=== PATIENT | male | born 1930 | race Caucasian/White ===

== ENCOUNTER 2017-05-05 09:22 | Emergency (ER) | payer OTHER ==
[2017-05-05 09:30] VITALS: BP 151/74; TEMP 98.6; BMI 22.0
[2017-05-05] MEDS ORDERED: NORCO 10-325 PO STA (10:13)
--- NOTE | 2017-05-05 10:34 | CT ---
EXAM: CT THORAX HISTORY: Fall on ice, rib pain posteriorly. TECHNIQUE: CT thorax without intravenous contrast. Multiplanar images presented. Coronal and sagit del re-formations. COMPARISON: None FINDINGS: Heart size is within normal limits. Mild to moderate atherosclerotic disease. Mild interstitial thickening in the medial lower right middle lobe possibly related to fibrosis. Cor relate clinically for any evidence of mild pneumonia. There is no pneumothorax or pleural fluid. No rmal vascularity. Mild to moderate degenerative changes of the thoracic spine. See also same day CT thoracic spine rep ort. There is a mildly displaced acute fracture of the posterior left tenth rib. No other acute frac tures are seen. Normal sized nodular thyroid gland. Tiny sliding hiatal hernia. IMPRESSION: 1. Mildly displaced acute fracture of the posterior left tenth rib. 2. Subtle interstitial thickening in the right middle lobe may represent fibrosis. Correlate clinic ally for any evidence of mild pneumonia. 3. Atherosclerotic disease. 4. Nodular thyroid gland. 5. Tiny sliding hiatal hernia.
--- NOTE | 2017-05-05 10:35 | CT ---
EXAM: CT thoracic spine without contrast HISTORY: Fall on ice COMPARISON: None TECHNIQUE: CT thoracic spine performed without intravenous contrast. Coronal and sagittal reformatt ed images obtained. FINDINGS: Vertebral bodies normal in height. No fracture. No subluxation. [id number] multil evel chronic discogenic degenerative disease with intervertebral disc space narrowing and marginal os teophyte formation. Central canal grossly patent. Right renal cyst. Atherosclerosis. Please see s eparate report CT chest regarding findings in the chest. IMPRESSION: 1. No fracture or subluxation. 2. Mild to moderate chronic discogenic degenerative disease.
--- NOTE | 2017-05-05 10:43 | CT ---
EXAM: CT lumbar spine without contrast HISTORY: Pain, fall COMPARISON: None TECHNIQUE: CT lumbar spine performed without intravenous contrast. Coronal and sagittal reformatted images obtained. FINDINGS: Patient status post posterior spinal fusion L4-L5. Hardware appears intact. Interbody spa cer L4-L5. Vertebral bodies normal height. No fracture. Mild to moderate rightward curvature lumba r spine. Multilevel marginal osteophyte formation. Multilevel Schmorl's nodes noted. Moderate interv ertebral space narrowing L2-L3, greater on the left. Multilevel facet arthrosis. 1 mm retrolisthesi s L2 on L3. Sacroiliac joints intact with mild degenerative change. Right renal cyst. Atherosclero sis. No paravertebral soft tissue abnormality. T12-L1: No central canal or neural foraminal narrowing. L1-L2: Posterior disc osteophyte complex and facet arthrosis causing moderate left neural foraminal narrowing. L2-L3: Posterior disc osteophyte complex and facet arthrosis causing mild central canal, mild right and mild to moderate left neural foraminal narrowing. L3-L4: Posterior disc osteophyte complex and facet arthrosis causing mild to moderate central canal and moderate bilateral neural foraminal narrowing. L4-L5: Posterior disc osteophyte complex1 and facet arthrosis causing mild to moderate right and mil d left neural foraminal narrowing. L5-S1: No central canal or neural foraminal narrowing. IMPRESSION: 1. No fracture. 2. Posterior spinal fusion L4-L5. Chronic discogenic degenerative disease and facet arthrosis. Ple ase see segmental analysis.
--- NOTE | 2017-05-05 10:56 | ED.PDOC ---
General ED Provider: Dr. KARINA JUSTICE Chief Complaint: Fall Stated Complaint: fall posterior chest wall pain back pain Time Seen by Physician: 09:29 (fall ) Mode of Arrival: Walk-In Information Source: Patient Exam Limitations: No limitations Primary Care Provider: PAULINO HILTON Nursing and Triage Documentation Reviewed and Agree: Yes Reviewed sepsis parameters & appropriate labs ordered?: Yes System Inflammatory Response Syndrome: Not Applicable Sepsis Protocol: For patient's 13 years and over: Temp is 96.8 and below OR 101 and greater Pulse >90 BPM Resp >20/minute Acutely Altered Mental Status Are patient's symptoms suggestive of a new infection, such as: -Pneumonia -Skin, Soft Tissue -Endocarditis -UTI -Bone, Joint Infection -Implantable Device -Acute Abdominal Infection -Wound Infection -Meningitis -Blood Stream Catheter Infection -Unknown System Inflammatory Response Syndrome: Not Applicable Trauma/Injury Complaint Exam - Trauma Complaint/Exam Location of Pain or Injury: Reports: Chest, Back Mechanism of Injury: Reports: Fall Onset/Duration: 3 days ago Symptoms Are: Resolved Initial Severity: Moderate Current Severity: Moderate Character: Reports: Aching Aggravating: Reports: Movement Alleviating: Reports: Rest Associated Signs and Symptoms: Denies: LOC, Confusion, Memory loss, Lethargy, Vomiting, Bleeding, Bruising, Swelling, Extremity disuse, Painful respiration, Hoarseness, Dysphagia, Hemoptysis, Significant blood loss Penetrating Injury Risk Factors: Reports: None Related Surgical History: Reports: None Nexus Low Risk Criteria: No post-midline CS tender, No evidence of intoxicat., No Altered LOC, No focal neuro deficit, No distracting injuries Immobilization Removed Post Exam: Yes Glascow Coma Scale (see protocol): 15 Trauma Findings: Absent: [place] eyes, Hemotympanum, Nasal deformity, Dental tenderness, Dental injury, Dental malocclusion, Neck tenderness, Neck spasm, SubQ Air, Crepitus, Airway obstructed, Trachea displaced, Labored respirations, Decreased breath sounds, Muffled heart sounds, Abdominal distention, Pelvic tenderness, Pelvic instability Skin Findings: Present: Normal findings Differential Diagnoses: Fracture, Sprain, Strain Review of Systems - Review Of Systems Constitutional: Reports: No symptoms Eyes: Reports: No symptoms Ears, Nose, Mouth, Throat: Reports: No symptoms Respiratory: Reports: No symptoms Cardiac: Reports: No symptoms GI: Reports: No symptoms : Reports: No symptoms Musculoskeletal: Reports: Back pain, Other (chest wall pain) Skin: Reports: No symptoms Neurological: Reports: No symptoms Endocrine: Reports: No symptoms Hematologic/Lymphatic: Reports: No symptoms All Other Systems: Reviewed and Negative Past Medical History - Past Medical History Previously Healthy: No Endocrine: Reports: None Cardiovascular: Reports: Hypertension Respiratory: Reports: None Hematological: Reports: None Gastrointestinal: Reports: GERD Genitourinary: Reports: None Neuro/Psych: Reports: None Musculoskeletal: Reports: None Cancer: Reports: None - Surgical History General Surgical History: Reports: Unknown - Family History Family History: Reports: Unknown - Social History Smoking Status: Never smoker Hx Substance Use: No Alcohol Screening: None - Immunizations Tetanus Shot up to Date: No Physical Exam - Physical Exam Appearance: Well-appearing (post chest wall pain on palpation of lower ribbs ), No pain distress, Well-nourished Eyes: STORM, EOMI, Conjunctiva clear ENT: Ears normal, Nose normal, Oropharynx normal Respiratory: Airway patent, Breath sounds clear, Breath sounds equal, Respirations nonlabored Cardiovascular: RRR, Pulses normal, No rub, No murmur GI/: Soft, Nontender, No masses, Bowel sounds normal, No Organomegaly Musculoskeletal: Normal strength, ROM intact, No edema, No calf tenderness Skin: Warm, Dry, Normal color Neurological: Sensation intact, Motor intact, Reflexes intact, Cranial nerves intact, Alert, Oriented Psychiatric: Affect appropriate, Mood appropriate Interpretation - Radiology Interpretation Radiology Interpretation By: Radiologist Radiology Results: Positive (10th rib fx) Critical Care Note - Critical Care Note Total Time (mins): 0 Course - Course Orders, Labs, Meds: Orders Category Date Time Status Hydrocodone Bit/Acetaminophen [[place] 10-325] MEDS 05/05/17 10:13 Stat 1 tab PO ONCE STA CT CHEST W/O CONTRAST Stat RADS 05/05/17 09:[address] LUMBAR SPINE W/O CONTRAST Stat RADS 05/05/17 09:[address] THORACIC SPINE W/O CONTRAST Stat RADS 05/05/17 09:43 Taken Medications Discontinued Medications Generic Name Dose Route Start Last Admin Trade Name Freq PRN Reason Stop Dose Admin Acetaminophen/Hydrocodone Bitart 1 tab 05/05/17 10:13 05/05/17 10:20 [place] 10-325 PO 05/05/17 10:14 1 tab ONCE STA Administration Vital Signs: Temp Pulse Resp BP Pulse Ox 05/05/17 09:24 98.6 F 78 16 151/74 H 93 L Departure - Departure Time of Disposition: 10:56 Disposition: HOME SELF-CARE Discharge Problem: Falls Fracture, rib Qualifiers: Encounter type: initial encounter Rib fracture type: single rib Fracture type: closed Instructions: Rib Fracture (ED) Condition: Good Pt referred to PMD for follow-up: Yes IPMP verified?: Yes Additional Instructions: Please call your Family Physician as soon as possible to schedule a follow-up appointment. Prescriptions: Hydrocodone/Acetaminophen [[place] 10-325 Tablet] 1 each PO Q8HR #12 tablet Allergies/Adverse Reactions: Allergies morphine Adverse Reaction (Verified 05/05/17 09:32) pregabalin [From Lyrica] Adverse Reaction (Verified 05/05/17 09:32) Home Medications: Ambulatory Orders Acetaminophen [Tylenol Extra Strength] 500 mg PO DIRECTED PRN 10/05/12 Aspirin [Aspirin Chewable] 81 mg PO DAILY 10/05/12 Cholecalciferol (Vitd3)/Vit K2 [D3 + K2 Dots 1,000 Units Tab] 1 each PO DAILY Lisinopril/Hydrochlorothiazide [Zestoretic 20-12.5 mg Tablet] 1 each PO DAILY Multivitamin [Multi Vitamin Daily] 1 each PO DAILY 10/05/12 [place]-3 Fatty Acids/Fish Oil [Fish Oil 1,000 mg Softgel] 1 each PO DAILY Omeprazole [Prilosec] 20 mg PO DIRECTED PRN 10/05/12 Simvastatin 40 mg PO DAILY 10/05/12 Sotalol HCl [Sotalol] 120 mg PO BID 10/05/12 Vardenafil HCl [Levitra] 10 mg PO DIRECTED PRN 10/05/12 Lisinopril 20 mg PO DAILY 06/04/15 Hydrocodone/Acetaminophen [[place] 10-325 Tablet] 1 each PO Q8HR #12 tablet
== END 2017-05-05 11:06 | disposition home or self-care (01) ==
LOC: ED 09:22
DX: S22.32XA Fracture of one rib, left side, initial encounter for closed fracture (principal); W19.XXXA Unspecified fall, initial encounter
CPT/HCPCS: 99283

== ENCOUNTER 2020-05-13 22:36 | Inpatient (IN) ==
[2020-05-13 23:13] LABS: BASOPHILS % (AUTO) 0.6 % (0.0-3.0); EOSINOPHILS % (AUTO) 0.2 % (0.0-7.0); HEMATOCRIT 38.8 % (42.0-52.0); HEMOGLOBIN 13.5 g/dl (14.0-18.0); IMMATURE GRANULOCYTE % (AUTO) 0.2 % (0.0-5.0); LYMPHOCYTES # (AUTO) 1.1 K/uL (0.60-3.4); LYMPHOCYTES % (AUTO) 22.2 (10.0-50.0); MEAN CORPUSCULAR HEMOGLOBIN 31.6 pg (27.0-31.0); MEAN CORPUSCULAR HGB CONC 34.8 (31.8-35.4); MEAN CORPUSCULAR VOLUME 90.9 fl (80.0-94.0); MONOCYTES # (AUTO) 0.4 K/uL (0.4-2.0); MONOCYTES % (AUTO) 7.1 (0-10); NEUTROPHILS # (AUTO) 3.4 K/ul (2.0-6.9); NEUTROPHILS % (AUTO) 69.7 % (42.2-75.2); PLATELET COUNT 186 10^3/uL (140-440); RDW COEFFICIENT OF VARIATION 14.1 % (11.6-14.8); RED BLOOD COUNT 4.27 10^6/ul (4.70-6.10); WHITE BLOOD COUNT 4.92 K/ul (4.2-10.2)
[2020-05-13 23:23] LABS: ALANINE AMINOTRANSFERASE 25.7 U/L (0-50); ALBUMIN 4.31 g/dL (3.5-5.0); ALKALINE PHOSPHATASE 72.2 U/L (56-119); ASPARTATE AMINO TRANSFERASE 65.2 U/L (17-59); BILIRUBIN,TOTAL 1.18 mg/dL (0.2-1.3); BLOOD UREA NITROGEN 30.7 mg/dL (9-20); CALCIUM 9.65 mg/dL (8.4-10.2); CARBON DIOXIDE 27.4 mmol/L (22-30.0); CHLORIDE 102.3 mmol/L (98-107); CREATININE 1.43 mg/dL (0.60-1.10); GLUCOSE 150.7 mg/dL (74-106); POTASSIUM 3.76 mmol/L (3.5-5.1); SODIUM 138.7 mmol/L (134.5-145); TOTAL PROTEIN 7.49 g/dL (6.3-8.2)
[2020-05-13 23:24] LABS: BLOOD ALCOHOL < 10.0 mg/dL (0.0-50.0)
[2020-05-13 23:29] LABS: ABG PH 7.45 (7.35-7.45)
--- NOTE | 2020-05-13 23:55 | CT ---
EXAM: CT scan brain without contrast HISTORY: Mental status change COMPARISON: None. FINDINGS: Contiguous axial images obtained from skull base to the convexities without contrast utili zing 5-mm collimation. Sagittal and coronal reconstructions were imaged and reviewed. The ventricle s and CSF spaces are prominent compatible with age appropriate atrophy. There is moderate periventri cular hypodensity noted compatible with chronic microvascular disease. There are no acute intracrani al findings. Atherosclerotic changes are seen involving the bilateral vertebral and cavernous international account representative al carotid arteries. The visualized paranasal sinuses and mastoid air cells are clear. The calvariu m is intact. IMPRESSION: No acute findings. All CT scans are performed using dose optimization techniques as appropriate to the performed exam an d include at least one of the following: Automated exposure control, adjustment of the mA and/or kV according t o size, and the use of iterative reconstruction technique.
--- NOTE | 2020-05-14 00:15 | ED.PDOC ---
General ED Provider: Dr. ALVIN KERR Chief Complaint: Altered Mental Status Stated Complaint: brought in by ems wandering the streets--pepe said he was talking to a napkin earlier Time Seen by Physician: 00:46 Mode of Arrival: Ambulance Information Source: Patient Primary Care Provider: TATA DACOSTA Nursing and Triage Documentation Reviewed and Agree: Yes Does patient meet sepsis criteria?: No System Inflammatory Response Syndrome: Not Applicable Sepsis Protocol: For patient's 13 years and over: Temp is 96.8 and below OR 101 and greater Pulse >90 BPM Resp >20/minute Acutely Altered Mental Status Are patient's symptoms suggestive of a new infection, such as: -Pneumonia -Skin, Soft Tissue -Endocarditis -UTI -Bone, Joint Infection -Implantable Device -Acute Abdominal Infection -Wound Infection -Meningitis -Blood Stream Catheter Infection -Unknown Neurological Complaint Exam Altered Mental Status Complaint/Exam Current Mental Status: Confusion Last Known Well: today Onset: Gradual Symptoms Are: Still present Timing: Constant Initial Severity: Mild Current Severity: Moderate Eye Deviation Present: No Character: Reports Confusion Aggravating: Reports None Alleviating: Reports None Carotid Bruit Present: No Nystagmus Present: No Gag Reflex Present: Yes Meningeal Signs Positive: No Focal Weakness: Present None Focal Sensory Loss: Present None Gait: Normal [id number]: Normal Findings Romberg Test Positive: No Babinski Sign: Negative Right and Negative Left Heel to Toe Normal: Yes Signs of Injury: Present Normal findings Thrombolytics Considered: No Differential Diagnoses: CVA and Other Review of Systems Review Of Systems Constitutional: Reports No symptoms Eyes: Reports No symptoms Ears, Nose, Mouth, Throat: Reports No symptoms Respiratory: Reports No symptoms Cardiac: Reports No symptoms GI: Reports No symptoms : Reports No symptoms Musculoskeletal: Reports No symptoms Skin: Reports No symptoms Neurological: Reports Cognitive dysfunction Endocrine: Reports No symptoms Hematologic/Lymphatic: Reports No symptoms All Other Systems: Reviewed and Negative [facility] Social History Smoking and tobacco status: Never smoker Physical Exam Physical Exam Appearance: Reports Well-appearing and Thin Ill-appearing: None Pain Distress: None Eyes: Reports STORM, EOMI and Conjunctiva clear ENT: Reports Ears normal Neck: Supple Respiratory: Reports Airway patent, Breath sounds clear and Breath sounds equal Cardiovascular: Reports RRR, Pulses normal, No rub and No murmur GI/: Reports Soft, Nontender, No masses and Bowel sounds normal Musculoskeletal: Reports Normal strength, ROM intact, No edema and No calf tenderness Skin: Reports Warm and Normal color Neurological: Reports Sensation intact, Motor intact, Reflexes intact, Cranial nerves intact, Alert and Disoriented Psychiatric: Reports Affect appropriate and Mood appropriate Interpretation Radiology Interpretation Radiology Interpretation By: Radiologist Radiology Results: Negative Exam Interpreted: CT Scan EKG Interpretation Time of EKG #1: 00:14 Rate: Marcus Rhythm: Sinus Ectopy: None Amonate: NL ST Segment: Normal Interpretation: sinus marcus Physician Notification Case Discussed Physician Notified: dr [email or web address] Time of Notification: 00:45 Critical Care Note Critical Care Note Total Critical Care Time (mins): 0 Course Course Hematology/Chemistry: 05/13/20 23:06 05/13/20 23:06 Orders, Labs, Meds: Lab Review 05/13/20 05/13/20 05/13/20 22:55 23:06 23:06 WBC 4.92 RBC 4.27 L Hgb 13.5 L Hct 38.8 L MCV 90.9 MCH 31.6 H MCHC 34.8 RDW Coeff of Natty 14.1 Plt Count 186 Immature Gran % (Auto) 0.2 Neut % (Auto) 69.7 Lymph % (Auto) 22.2 Lipscomb % (Auto) 7.1 Eos % (Auto) 0.2 Baso % (Auto) 0.6 Neut # (Auto) 3.4 Lymph # (Auto) 1.1 Lipscomb # (Auto) 0.4 Eos # (Auto) 0.0 Baso # (Auto) 0.0 Immature Gran # (Auto) 0.0 Puncture Site Rbrach Base Excess 4.5 H O2 Saturation 94.8 ABG pH 7.45 ABG pCO2 41.0 ABG pO2 71.0 L ABG HCO3 28.5 H ABG Total CO2 29.8 H Chris Test Pos Hemoglobin 1.3 Oxyhemoglobin 93.9 L Carboxyhemoglobin 1.5 Total Hemoglobin 12.9 FiO2 % Sodium 138.7 Potassium 3.76 Chloride 102.3 Carbon Dioxide 27.4 Anion Gap 12.76 BUN 30.7 H Creatinine 1.43 H Estimated GFR (MDRD) 47.00 BUN/Creatinine Ratio 21.46 Glucose 150.7 H Calcium 9.65 Total Bilirubin 1.18 AST 65.2 H ALT 25.7 Alkaline Phosphatase 72.2 Total Creatine Kinase 397.0 H CK-MB (CK-2) CK-MB (CK-2) % 1.4500 Troponin I 0.040 Total Protein 7.49 Albumin 4.31 Globulin 3.18 Albumin/Globulin Ratio 1.35 TSH 2.020 Urine Color Urine Clarity Urine pH Ur Specific [place] Urine Protein Urine Glucose (UA) Urine Ketones Urine Blood Urine Nitrite Urine Bilirubin Urine Urobilinogen Ur Leukocyte Esterase Urine Opiates Screen Ur Oxycodone Screen Urine Methadone Screen Ur Propoxyphene Screen Ur Barbiturates Screen U Tricyclic Antidepress Ur Phencyclidine Scrn Ur Amphetamine Screen U Methamphetamines Scrn U Benzodiazepines Scrn Urine Cocaine Screen U Cannabinoids Screen Plasma/Serum Alcohol < 10.0 05/14/20 05/14/20 00:00 00:00 WBC RBC Hgb Hct MCV MCH MCHC RDW Coeff of Natty Plt Count Immature Gran % (Auto) Neut % (Auto) Lymph % (Auto) Lipscomb % (Auto) Eos % (Auto) Baso % (Auto) Neut # (Auto) Lymph # (Auto) Lipscomb # (Auto) Eos # (Auto) Baso # (Auto) Immature Gran # (Auto) Puncture Site Base Excess O2 Saturation ABG pH ABG pCO2 ABG pO2 ABG HCO3 ABG Total CO2 Chris Test Hemoglobin Oxyhemoglobin Carboxyhemoglobin Total Hemoglobin FiO2 % Sodium Potassium Chloride Carbon Dioxide Anion Gap BUN Creatinine Estimated GFR (MDRD) BUN/Creatinine Ratio Glucose Calcium Total Bilirubin AST ALT Alkaline Phosphatase Total Creatine Kinase CK-MB (CK-2) CK-MB (CK-2) % Troponin I Total Protein Albumin Globulin Albumin/Globulin Ratio TSH Urine Color Yellow Urine Clarity Clear Urine pH 5.5 Ur Specific [place] >=1.030 Urine Protein Negative Urine Glucose (UA) Negative Urine Ketones Trace H Urine Blood Negative Urine Nitrite Negative Urine Bilirubin 1+ H Urine Urobilinogen 0.2 Ur Leukocyte Esterase Negative Urine Opiates Screen Negative Ur Oxycodone Screen Negative Urine Methadone Screen Negative Ur Propoxyphene Screen Negative Ur Barbiturates Screen Negative U Tricyclic Antidepress Negative Ur Phencyclidine Scrn Negative Ur Amphetamine Screen Negative U Methamphetamines Scrn Negative U Benzodiazepines Scrn Negative Urine Cocaine Screen Negative U Cannabinoids Screen Negative Plasma/Serum Alcohol Orders Category Date Time Status ABG DRAW REQUEST Stat CARDIO 05/13/20 22:52 Completed EKG-(ED ONLY) Stat CARDIO 05/13/20 22:52 Completed ED GIS MANAGER APPLIED .ONCE EMERGENCY 05/13/20 22:52 Active ABG COOX Stat LAB 05/13/20 22:55 Completed BLOOD ALCOHOL Stat LAB 05/13/20 23:06 Completed CBC W/ AUTO DIFF Stat LAB 05/13/20 23:06 Completed COMPREHENSIVE METABOLIC PANEL Stat LAB 05/13/20 23:06 Completed CREATINE KINASE Stat LAB 05/13/20 23:06 Completed DRUG SCREEN, URINE, RAPID Stat LAB 05/13/20 22:54 Completed THYROID STIMULATING HORMONE Stat LAB 05/13/20 23:06 Completed TROPONIN I Stat LAB 05/13/20 23:06 Completed URINALYSIS C & S IF INDICATED Stat LAB 05/13/20 22:[address] HEAD W/O CONTRAST Stat RADS 05/13/20 22:53 Completed Vital Signs: Temp Pulse Resp BP Pulse Ox 05/13/20 22:37 97.2 F L 68 16 104/56 L 100 Discharge Plan Discharge Patient Disposition: ADMITTED INPATIENT Discharge Problem: Altered mental status, Acute dehydration Prescriptions: No Action sotalol 120 MG tablet 120 mg PO BID RF: 0 multivitamin [Daily Multi-Vitamin] 1 EACH tablet 1 ea PO DAILY RF: 0 lisinopril-hydrochlorothiazide [Zestoretic] 1 EACH tablet 1 ea PO DAILY RF: 0 acetaminophen [Tylenol Extra Strength] 500 MG tablet 500 mg PO DIRECTED PRN (Reason: Fever >101) RF: 0 simvastatin 40 MG tablet 40 mg PO DAILY RF: 0 omeprazole 20 MG capsule,delayed release(DR/EC) 20 mg PO DIRECTED PRN (Reason: Heartburn) RF: 0 aspirin 81 MG tablet,chewable 81 mg PO DAILY RF: 0 vardenafil [Levitra] 10 MG tablet 10 mg PO DIRECTED PRN (Reason: Restlessness) RF: 0 omega-3 fatty acids-fish oil 1 EACH capsule 1 ea PO DAILY RF: 0 vitamin D3-vitamin K2 [D3 + K2 DOTS] 1 EACH tablet,disintegrating 1 ea PO DAILY RF: 0 lisinopril 20 MG tablet 20 mg PO DAILY RF: 0 hydrocodone-acetaminophen [[place]] 1 EACH tablet 1 ea PO Q8HR Qty: 12 RF: 0 ED Provider: ALVIN KERR Condition: Fair Physician Progress Note: []
[2020-05-14 00:20] LABS: BILIRUBIN,URINE 1+ (NEGATIVE); CLARITY,URINE Clear (CLEAR); COLOR,URINE Yellow (YELLOW); GLUCOSE, URINE (UA) Negative (NEGATIVE); KETONES,URINE Trace (NEGATIVE); LEUKOCYTE ESTERASE ,URINE Negative (NEGATIVE); NITRITE,URINE Negative (NEGATIVE); PH,URINE 5.5 (5-9); PROTEIN,URINE Negative (NEGATIVE); URINE, BLOOD Negative (NEGATIVE); UROBILINOGEN,URINE 0.2 (0.2)
[2020-05-14 00:29] LABS: AMPHETAMINE SCREEN,URINE NEGATIVE (NEGATIVE); BARBITURATE SCREEN,URINE NEGATIVE (NEGATIVE); BENZODIAZEPINES SCREEN,URINE NEGATIVE (NEGATIVE); CANNABINOID SCREEN,URINE NEGATIVE (NEGATIVE); COCAIN SCREEN,URINE NEGATIVE (NEGATIVE); METHADONE URINE SCREEN NEGATIVE (NEGATIVE); METHAMPHETAMINES SCREEN,URINE NEGATIVE (NEGATIVE); OPIATE SCREEN,URINE NEGATIVE (NEGATIVE); OXYCODONE URINE SCREEN NEGATIVE (NEGATIVE); PHENCYCLIDINE SCREEN,URINE NEGATIVE (NEGATIVE); PROPOXYPHENE URINE SCREEN NEGATIVE (NEGATIVE); TRICYCLIC ANTIDEPRESSANTS URIN NEGATIVE (NEGATIVE)
[2020-05-14] MEDS ORDERED: PRILOSEC PO PRN (00:51)
[2020-05-14] MEDS ORDERED: TYLENOL PO PRN (00:51)
[2020-05-14 01:37] VITALS: BMI 19.2
[2020-05-14] MEDS: SODIUM CHLORIDE 1,000 ML IV SCH ×2 (02:34→20:00)
[2020-05-14 05:07] LABS: BASOPHILS % (AUTO) 0.8 % (0.0-3.0); EOSINOPHILS % (AUTO) 0.6 % (0.0-7.0); HEMOGLOBIN 12.9 g/dl (14.0-18.0); IMMATURE GRANULOCYTE % (AUTO) 0.2 % (0.0-5.0); LYMPHOCYTES # (AUTO) 1.8 K/uL (0.60-3.4); LYMPHOCYTES % (AUTO) 34.7 (10.0-50.0); MEAN CORPUSCULAR HEMOGLOBIN 32.1 pg (27.0-31.0); MEAN CORPUSCULAR HGB CONC 34.9 (31.8-35.4); MONOCYTES # (AUTO) 0.4 K/uL (0.4-2.0); NEUTROPHILS # (AUTO) 2.9 K/ul (2.0-6.9); NEUTROPHILS % (AUTO) 55.7 % (42.2-75.2); PLATELET COUNT 171 10^3/uL (140-440); RDW COEFFICIENT OF VARIATION 13.9 % (11.6-14.8); RED BLOOD COUNT 4.02 10^6/ul (4.70-6.10); WHITE BLOOD COUNT 5.22 K/ul (4.2-10.2)
[2020-05-14 05:22] LABS: ALBUMIN 3.95 g/dL (3.5-5.0); ALKALINE PHOSPHATASE 78.6 U/L (56-119); ASPARTATE AMINO TRANSFERASE 55.8 U/L (17-59); BILIRUBIN,TOTAL 0.81 mg/dL (0.2-1.3); CALCIUM 9.25 mg/dL (8.4-10.2); CARBON DIOXIDE 26.9 mmol/L (22-30.0); CHLORIDE 103.3 mmol/L (98-107); CREATININE 1.32 mg/dL (0.60-1.10); GLUCOSE 96.6 mg/dL (74-106); POTASSIUM 3.57 mmol/L (3.5-5.1); SODIUM 137.8 mmol/L (134.5-145); TOTAL PROTEIN 6.97 g/dL (6.3-8.2)
[2020-05-14] MEDS: NORCO 10-325 PO SCH ×2 (05:42→12:09)
--- NOTE | 2020-05-14 08:59 | PCM.PROG ---
Attending Provider: ATTENDING PROVIDER: Dr. TATA DURAN This patient is seen with Abby Lara, Nurse Practitioner. DATE OF SERVICE: 05/14/20 SUBJECTIVE: This 89 year old /WHITE M was hospitalized 05/14/20. The patient is resting comfortably. He was found by EMS last night wandering the streets with no shirt on. Skin assessment appears normal. He pulled out two IVs, refuses a try for a third. CT of the head normal as was urine. The patient has a long history of dementia. REVIEW OF SYSTEMS: CONSTITUTIONAL: Weakness. No night sweats. No fatigue, malaise, lethargy. No fever or chills. HEENT: Eyes: No visual changes. No eye pain. No eye discharge. ENT: No runny nose. No epistaxis. No sinus pain. No odynophagia. No congestion. RESPIRATORY: No cough, no congestion. No hemoptysis. No shortness of breath. CARDIOVASCULAR: No angina symptoms. No CHF symptoms. No atypical chest pain for CAD. No palpitations. No orthopnea.. GASTROINTESTINAL: No abdominal pain. No nausea or vomiting. No diarrhea or constipation. No hematemesis. No hematochezia. GENITOURINARY: No urgency. No frequency. No dysuria. No hematuria. No obstructive symptoms. No discharge. No pain. No significant abnormal bleeding. MUSCULOSKELETAL: No musculoskeletal pain; no joint swelling. NEUROLOGICAL: Confusion. No headache. No neck pain. No syncope. No seizures. No dizziness. PSYCHIATRIC: Not anxious. No depression. No suicidal thoughts. No homicidal thoughts. SKIN: No rash. No lesions. No wounds. ENDOCRINE: No unexplained weight loss. No weight gain. HEMATOLOGIC/LYMPHATIC: No anemia. No purpura. No petechiae. No prolonged or excessive bleeding. No palpable lymph nodes. PHYSICAL EXAMINATION: GENERAL: The patient is awake, alert to person only, lying/sitting in bed in no distress. VITAL SIGNS: Temperature 97.1 F, Pulse 79, Respiratory Rate 16, BP 147/74, Pulse Ox 97% HEENT: Head normocephalic, atraumatic. Eyes: Extraocular muscles are intact. Pupils are equal, round and reactive to light and accommodation. Ears: No lesions. Nose appeared normal. Throat: No exudate or erythema. NECK: Supple. No JVD, no carotid bruit. No lymphadenopathy or thyromegaly. LUNGS: Diminished breath sounds. Clear to auscultation. Percussion note normal. Chest symmetrical. HEART: S1, S2, no S3. No murmurs. No cyanosis or clubbing. No ascites. Pulses: Dorsalis pedis and posterior tibial pulses +1 to +2 both sides. ABDOMEN: Soft. Non-tender. Bowel sounds active. No CVA tenderness. No mass felt. EXTREMITIES: No edema. Full range of motion of all extremities, equal. NEUROLOGIC: No focal deficit. Cranial nerves II through XII are grossly intact. No headache, no double vision or headache. SKIN: Not dry. Intact. Turgor-normal. LYMPHATIC: No palpable lymph nodes/no lymphedema. MUSCULOSKELETAL: Normal joints with no swelling. Muscle tone is normal. LAB REVIEW: 05/14/20 04:35 05/14/20 04:35 05/14/20 04:35: Sodium 137.8, Potassium 3.57, Chloride 103.3, Carbon Dioxide 26.9, Anion Gap 11.17, BUN 31.0 H, Creatinine 1.32 H, Estimated GFR (MDRD) 51.00, BUN/Creatinine Ratio 23.48, Glucose 96.6 D, Calcium 9.25, Total Bilirubin 0.81, AST 55.8, ALT 23.0, Alkaline Phosphatase 78.6, Total Protein 6.97, Albumin 3.95, Globulin 3.02, Albumin/Globulin Ratio 1.30 05/14/20 04:35: WBC 5.22, RBC 4.02 L, Hgb 12.9 L, Hct 37.0 L, MCV 92.0, MCH 32.1 H, MCHC 34.9, RDW Coeff of Natty 13.9, Plt Count 171, Immature Gran % (Auto) 0.2, Neut % (Auto) 55.7, Lymph % (Auto) 34.7, [place] % (Auto) 8.0, Eos % (Auto) 0.6, Baso % (Auto) 0.8, Neut # (Auto) 2.9, Lymph # (Auto) 1.8, [place] # (Auto) 0.4, Eos # (Auto) 0.0, Baso # (Auto) 0.0, Immature Gran # (Auto) 0.0 05/14/20 00:00: Urine Color Yellow, Urine Clarity Clear, Urine pH 5.5, Ur Specific [place] >=1.030, Urine Protein Negative, Urine Glucose (UA) Negative, Urine Ketones Trace H, Urine Blood Negative, Urine Nitrite Negative, Urine Bilirubin 1+ H, Urine Urobilinogen 0.2, Ur Leukocyte Esterase Negative 05/14/20 00:00: Urine Opiates Screen Negative, Ur Oxycodone Screen Negative, Urine Methadone Screen Negative, Ur Propoxyphene Screen Negative, Ur Barbiturates Screen Negative, U Tricyclic Antidepress Negative, Ur Phencyclidine Scrn Negative, Ur Amphetamine Screen Negative, U Methamphetamines Scrn Negative, U Benzodiazepines Scrn Negative, Urine Cocaine Screen Negative, U Cannabinoids Screen Negative 05/13/20 23:06: Sodium 138.7, Potassium 3.76, Chloride 102.3, Carbon Dioxide 27.4, Anion Gap 12.76, BUN 30.7 H, Creatinine 1.43 H, Estimated GFR (MDRD) 47.00, BUN/Creatinine Ratio 21.46, Glucose 150.7 H, Calcium 9.65, Total Bilirubin 1.18, AST 65.2 H, ALT 25.7, Alkaline Phosphatase 72.2, Total Creatine Kinase 397.0 H, CK-MB (CK-2) , CK-MB (CK-2) % 1.4500, Troponin I 0.040, Total Protein 7.49, Albumin 4.31, Globulin 3.18, Albumin/Globulin Ratio 1.35, TSH 2.020, Plasma/Serum Alcohol < 10.0 05/13/20 23:06: WBC 4.92, RBC 4.27 L, Hgb 13.5 L, Hct 38.8 L, MCV 90.9, MCH 31.6 H, MCHC 34.8, RDW Coeff of Natty 14.1, Plt Count 186, Immature Gran % (Auto) 0.2, Neut % (Auto) 69.7, Lymph % (Auto) 22.2, [place] % (Auto) 7.1, Eos % (Auto) 0.2, Baso % (Auto) 0.6, Neut # (Auto) 3.4, Lymph # (Auto) 1.1, [place] # (Auto) 0.4, Eos # (Auto) 0.0, Baso # (Auto) 0.0, Immature Gran # (Auto) 0.0 05/13/20 22:55: Puncture Site Rbrach, Base Excess 4.5 H, O2 Saturation 94.8, ABG pH 7.45, ABG pCO2 41.0, ABG pO2 71.0 L, ABG HCO3 28.5 H, ABG Total CO2 29.8 H, Chris Test Pos, Hemoglobin 1.3, Oxyhemoglobin 93.9 L, Carboxyhemoglobin 1.5, Total Hemoglobin 12.9, FiO2 % 21.0 ASSESSMENT: Please see below. 1. Altered mental status. 2. Dementia. 3. Back pain. 4. Dehydration. 5. Underlying chronic kidney disease. PLAN: 1. Covid PCR pending 2. Chest x-ray 3. L-spine x-ray 4. Mini mental exam 5. T4, TSH 6. A1C 7. B12 *Of note, the patient will not leave telemetry on. Plan and coordination of the patient's care discussed in the presence of Refrigeration Houseman and nurse. CONDITION: Stable SCRIBED BY: Anthony OJEDAist scribed while in presence of service performed by Dr. Duran/Abby Lara APRN on 05/14/20 ([id number])
[2020-05-14] MEDS ORDERED: BETAPACE PO SCH ×2 (09:00→21:00)
[2020-05-14] MEDS ORDERED: ZESTORETIC 20-12.5 MG TAB PO SCH (09:00)
[2020-05-14] MEDS ORDERED: ZOCOR PO SCH (09:00)
[2020-05-14] MEDS ORDERED: ZESTRIL PO SCH (09:00)
[2020-05-14 09:08] LABS: FREE T4 (FREE THYROXINE) 1.22 ng/dL (0.78-2.19)
[2020-05-14] MEDS: COZAAR PO SCH (10:19)
[2020-05-14] MEDS: ASPIRIN CHEWABLE PO SCH (10:19)
[2020-05-14] MEDS: BETAPACE PO SCH ×2 (10:20→20:10)
[2020-05-14] MEDS: ZOCOR PO SCH (10:20)
--- NOTE | 2020-05-14 16:08 | DI ---
EXAM: Chest one view HISTORY: Shortness of air COMPARISON: None TECHNIQUE: Single view of the chest was performed FINDINGS: The lungs are clear. There is no pleural effusion or pneumothorax. The heart is normal i n size. The mediastinal contour is unchanged, noting atherosclerosis. There are no acute abnormalit ies of the bones. IMPRESSION: No acute cardiopulmonary process.
--- NOTE | 2020-05-14 16:15 | DI ---
EXAM: Lumbar spine three view HISTORY: Back pain COMPARISON: None TECHNIQUE: Three-view lumbar spine was performed FINDINGS: Sacroiliac joints intact. Sacrum poorly visualized secondary to overlying bowel gas. Pos terior spinal fusion L4-L5. Hardware appears intact. Severe compression fracture L1. Multilevel in tervertebral disc space narrowing. Multilevel marginal osteophyte formation. Multilevel facet arthr osis. Trace retrolisthesis of L2 on L3 and L3-L4. IMPRESSION: 1. Severe compression fracture L1. Recommend correlation with CT. 2. Posterior spinal fusion L4-L5. Hardware appears intact. Chronic discogenic degenerative disease and facet arthrosis.
[2020-05-15 05:47] LABS: BASOPHILS % (AUTO) 0.5 % (0.0-3.0); EOSINOPHILS % (AUTO) 0.6 % (0.0-7.0); HEMATOCRIT 38.4 % (42.0-52.0); HEMOGLOBIN 12.9 g/dl (14.0-18.0); IMMATURE GRANULOCYTE % (AUTO) 0.3 % (0.0-5.0); LYMPHOCYTES # (AUTO) 1.8 K/uL (0.60-3.4); LYMPHOCYTES % (AUTO) 26.7 (10.0-50.0); MEAN CORPUSCULAR HEMOGLOBIN 30.9 pg (27.0-31.0); MEAN CORPUSCULAR HGB CONC 33.6 (31.8-35.4); MEAN CORPUSCULAR VOLUME 92.1 fl (80.0-94.0); MONOCYTES # (AUTO) 0.5 K/uL (0.4-2.0); MONOCYTES % (AUTO) 7.2 (0-10); NEUTROPHILS # (AUTO) 4.3 K/ul (2.0-6.9); NEUTROPHILS % (AUTO) 64.7 % (42.2-75.2); PLATELET COUNT 170 10^3/uL (140-440); RDW COEFFICIENT OF VARIATION 14.1 % (11.6-14.8); RED BLOOD COUNT 4.17 10^6/ul (4.70-6.10); WHITE BLOOD COUNT 6.64 K/ul (4.2-10.2)
[2020-05-15 06:01] LABS: ALANINE AMINOTRANSFERASE 22.9 U/L (0-50); ALBUMIN 3.95 g/dL (3.5-5.0); ALKALINE PHOSPHATASE 70.7 U/L (56-119); ASPARTATE AMINO TRANSFERASE 50.2 U/L (17-59); BILIRUBIN,TOTAL 0.81 mg/dL (0.2-1.3); BLOOD UREA NITROGEN 30.3 mg/dL (9-20); CALCIUM 9.31 mg/dL (8.4-10.2); CREATININE 1.35 mg/dL (0.60-1.10); GLUCOSE 103.2 mg/dL (74-106); POTASSIUM 3.53 mmol/L (3.5-5.1); SODIUM 139.4 mmol/L (134.5-145)
[2020-05-15] MEDS ORDERED: COZAAR PO SCH (09:00)
[2020-05-15] MEDS ORDERED: ZOCOR PO SCH (09:00)
[2020-05-15] MEDS: ASPIRIN CHEWABLE PO SCH (09:24)
[2020-05-15] MEDS: ZOCOR PO SCH (09:24)
[2020-05-15] MEDS: COZAAR PO SCH (09:25)
[2020-05-15] MEDS: BETAPACE PO SCH ×2 (09:25→21:38)
--- NOTE | 2020-05-15 09:29 | HP ---
DATE OF SERVICE: 05/14/20 REASON FOR HOSPITALIZATION/HISTORY OF PRESENT ILLNESS: This is an 89-year-old white male who is brought in by EMS wandering the streets with no shirt on. They found his family. He supposedly lives with his sister and she said he had been talking to a "napkin" earlier. He does have a history of dementia and was last seen in our office in October and missed his appointment in January of 2020 and hasn't been in since. PAST MEDICAL HISTORY: Chronic kidney disease Stage 2 Dementia Mild depression, Lexapro helps Hypertension Severe dyslipidemia Chronic cough B12 deficiency History of weight loss Hyperglycemia PAST SURGICAL HISTORY: The patient recently came to us in 2018. The surgical history that he can remember (he is a poor historian) is having a history of knee surgery and back surgery. REVIEW OF SYSTEMS: CONSTITUTIONAL: No night sweats. No fatigue, malaise, lethargy. No fever or chills. HEENT: Eyes: No visual changes. No eye pain. No eye discharge. ENT: No runny nose. No epistaxis. No sinus pain. No sore throat. No odynophagia. No ear pain. No congestion. RESPIRATORY: No cough, no congestion. No hemoptysis. No shortness of breath. CARDIOVASCULAR: No angina symptoms. No CHF symptoms. No atypical chest pain for CAD. No palpitations. No PND. No orthopnea. GASTROINTESTINAL: No abdominal pain. No nausea or vomiting. No diarrhea or constipation. No hematemesis. No hematochezia. GENITOURINARY: No urgency. No frequency. No dysuria. No hematuria. No obstructive symptoms. No discharge. No pain. No significant abnormal bleeding. MUSCULOSKELETAL: No musculoskeletal pain. No joint swelling. No arthritis. NEUROLOGICAL: No headache. No neck pain. No syncope. No seizures. No dizziness. PSYCHIATRIC: Positive for confusion, agitation. Not anxious. No depression. No suicidal thoughts. No homicidal thoughts. SKIN: No rash. No lesions. No wounds. ENDOCRINE: No unexplained weight loss. No weight gain. HEMATOLOGIC/LYMPHATIC: No anemia. No purpura. No petechiae. No prolonged or excessive bleeding. No palpable lymph nodes. PERSONAL/FAMILY/SOCIAL HISTORY: He is . Nonsmoker. No alcohol or illicit drug use. Again, it is unclear if he is living by himself or has been living with his sister Anuradha. MEDICATIONS: Sotalol 60 mg p.o. b.i.d. Simvastatin 20 mg p.o. daily Aspirin 81 mg p.o. daily Losartan 100 mg p.o. daily ALLERGIES: MORPHINE, PREGABLIN PHYSICAL EXAMINATION: GENERAL: The patient is alert, oriented to person only. VITAL SIGNS: Temperature 97.2, heart rate 68, respirations 16, blood pressure 104/56, pulse ox 100%. HEENT: Head normocephalic, atraumatic. Eyes: Extraocular muscles are intact. Pupils are equal, round and reactive to light and accommodation. Ears: No lesions. Nose appeared normal. Throat: No exudate or erythema. NECK: Supple. No JVD, no carotid bruit. No lymphadenopathy or thyromegaly. LUNGS: Diminished breath sounds. Clear to auscultation. Percussion note normal. Chest symmetrical. HEART: S1, S2, no S3. No murmur. No cyanosis or clubbing. No ascites. Pulses: Dorsalis pedis and posterior tibial pulses +1 to +2 bilaterally. ABDOMEN: Soft. Nontender. Bowel sounds active. No CVA tenderness. No mass felt. EXTREMITIES: No edema. Full range of motion of all extremities, equal. NEUROLOGIC: No focal deficit. Cranial nerves II through XII are grossly intact. No headache, no double vision or headache. SKIN: Not dry. Intact. Turgor - normal. LYMPHATIC: No palpable lymph nodes/no lymphedema. MUSCULOSKELETAL: Normal joints with no swelling. Muscle tone is normal. LABS/ABGs/IMAGING: Drug screen negative. Urine shows trace ketones, 1+ bili. ABG - pc02 41, p02 71, pH 7.45. Oxygen saturation 94, bicarg 28.5, sodium 138, potassium 3.7, BUN 30, creatinine 1.43, AST 65, ALT 25. White count 4.9, hemoglobin 13.5, hematocrit 38.8, platelets 186. CT of the brain showed no acute findings. He has age appropriate atrophy, microvascular disease. ASSESSMENT: 1. Change in mental status. 2. Advancing dementia. 3. Mild dehydration. 4. Underlying chronic kidney disease. 5. Hypertension. PLAN: 1. We will admit. 2. Routine telemetry orders. 3. CBC, CMP daily. 4. The patient is unsure about home medications, will get a list from the office. 5. Normal Saline at 75 cc/hr IV. 6. Covid test by PCR. 7. Chest x-ray. 8. T4, TSH, B12, A1C. 9. Regular diet. 10. Oxygen at 1 to 2L as needed. 11. Will follow closely. TIME SPENT: More than 70 minutes. MTDD
--- NOTE | 2020-05-15 09:45 | PN ---
DATE OF SERVICE: 05/14/2020 SUBJECTIVE: The patient was seen and examined with the Nurse Practitioner. The patient's condition is stable. He doesn't seem to be in distress but he is sleepy. Cardiovascular status is stable. History and Physical and planning for the patient's management was done with Nurse Practitioner. TIME SPENT: More than 30 minutes. Plan and coordination of the patient's care discussed in the presence of nurse. DAVID
[2020-05-15] MEDS: NORCO 5-325 PO PRN ×2 (11:28→18:39)
[2020-05-15] MEDS: HALDOL IM SCH ×2 (16:20→21:37)
[2020-05-15] MEDS: SODIUM CHLORIDE 1,000 ML IV SCH ×2 (18:49→22:42)
[2020-05-16] MEDS: HALDOL IM SCH ×3 (05:14→17:44)
[2020-05-16 05:49] LABS: BASOPHILS % (AUTO) 0.6 % (0.0-3.0); EOSINOPHILS # (AUTO) 0.1 K/ul (0.0-0.7); EOSINOPHILS % (AUTO) 1.1 % (0.0-7.0); HEMATOCRIT 36.8 % (42.0-52.0); HEMOGLOBIN 12.3 g/dl (14.0-18.0); IMMATURE GRANULOCYTE % (AUTO) 0.4 % (0.0-5.0); LYMPHOCYTES # (AUTO) 1.7 K/uL (0.60-3.4); MEAN CORPUSCULAR HEMOGLOBIN 31.1 pg (27.0-31.0); MEAN CORPUSCULAR HGB CONC 33.4 (31.8-35.4); MEAN CORPUSCULAR VOLUME 92.9 fl (80.0-94.0); MONOCYTES # (AUTO) 0.4 K/uL (0.4-2.0); MONOCYTES % (AUTO) 8.2 (0-10); NEUTROPHILS # (AUTO) 2.4 K/ul (2.0-6.9); NEUTROPHILS % (AUTO) 52.7 % (42.2-75.2); PLATELET COUNT 156 10^3/uL (140-440); RDW COEFFICIENT OF VARIATION 14.1 % (11.6-14.8); RED BLOOD COUNT 3.96 10^6/ul (4.70-6.10); WHITE BLOOD COUNT 4.62 K/ul (4.2-10.2)
[2020-05-16 06:05] LABS: ALANINE AMINOTRANSFERASE 26.8 U/L (0-50); ALBUMIN 3.38 g/dL (3.5-5.0); ALKALINE PHOSPHATASE 88.5 U/L (56-119); ASPARTATE AMINO TRANSFERASE 49.4 U/L (17-59); BILIRUBIN,TOTAL 0.47 mg/dL (0.2-1.3); CALCIUM 8.9 mg/dL (8.4-10.2); CARBON DIOXIDE 29.5 mmol/L (22-30.0); CHLORIDE 103.6 mmol/L (98-107); CREATININE 1.19 mg/dL (0.60-1.10); GLUCOSE 95.9 mg/dL (74-106); POTASSIUM 3.94 mmol/L (3.5-5.1); SODIUM 137.9 mmol/L (134.5-145); TOTAL PROTEIN 6.19 g/dL (6.3-8.2)
--- NOTE | 2020-05-16 09:00 | PCM.PROG ---
Attending Provider: ATTENDING PROVIDER: Dr. TATA DURAN This patient is seen with Abby Lara, Nurse Practitioner. DATE OF SERVICE: 05/16/20 SUBJECTIVE: l This 89 year old /WHITE M was hospitalized 05/14/20. The patient is resting comfortably. He is getting more and more agitated the longer he is here. No complaints of pain. Mini mental exam 01/16. REVIEW OF SYSTEMS: CONSTITUTIONAL: No night sweats. No fatigue, malaise, lethargy. No fever or chills. HEENT: Eyes: No visual changes. No eye pain. No eye discharge. ENT: No runny nose. No epistaxis. No sinus pain. No odynophagia. No congestion. RESPIRATORY: No cough, no congestion. No hemoptysis. No shortness of breath. CARDIOVASCULAR: No angina symptoms. No CHF symptoms. No atypical chest pain for CAD. No palpitations. No orthopnea.. GASTROINTESTINAL: No abdominal pain. No nausea or vomiting. No diarrhea or constipation. No hematemesis. No hematochezia. GENITOURINARY: No urgency. No frequency. No dysuria. No hematuria. No obstructive symptoms. No discharge. No pain. No significant abnormal bleeding. MUSCULOSKELETAL: No musculoskeletal pain; no joint swelling. NEUROLOGICAL: Confusion. No headache. No neck pain. No syncope. No seizures. No dizziness. PSYCHIATRIC: Agitation. No depression. No suicidal thoughts. No homicidal thoughts. SKIN: No rash. No lesions. No wounds. ENDOCRINE: No unexplained weight loss. No weight gain. HEMATOLOGIC/LYMPHATIC: No anemia. No purpura. No petechiae. No prolonged or excessive bleeding. No palpable lymph nodes. PHYSICAL EXAMINATION: GENERAL: The patient is awake, alert, not oriented, lying/sitting in bed in no distress. VITAL SIGNS: Temperature 97.8 F, Pulse 52, Respiratory Rate 16, BP 136/72, Pulse Ox 94% HEENT: Head normocephalic, atraumatic. Eyes: Extraocular muscles are intact. Pupils are equal, round and reactive to light and accommodation. Ears: No lesions. Nose appeared normal. Throat: No exudate or erythema. NECK: Supple. No JVD, no carotid bruit. No lymphadenopathy or thyromegaly. LUNGS: Diminished breath sounds. Clear to auscultation. Percussion note normal. Chest symmetrical. HEART: S1, S2, no S3. No murmurs. No cyanosis or clubbing. No ascites. Pulses: Dorsalis pedis and posterior tibial pulses +1 to +2 both sides. ABDOMEN: Soft. Non-tender. Bowel sounds active. No CVA tenderness. No mass felt. EXTREMITIES: No edema. Full range of motion of all extremities, equal. NEUROLOGIC: No focal deficit. Cranial nerves II through XII are grossly intact. No headache, no double vision or headache. SKIN: Not dry. Intact. Turgor-normal. LYMPHATIC: No palpable lymph nodes/no lymphedema. MUSCULOSKELETAL: Normal joints with no swelling. Muscle tone is normal. LAB REVIEW: 05/16/20 04:40 05/16/20 04:40 05/16/20 04:40: Sodium 137.9, Potassium 3.94, Chloride 103.6, Carbon Dioxide 29.5, Anion Gap 8.74, BUN 29.0 H, Creatinine 1.19 H, Estimated GFR (MDRD) 58.00, BUN/Creatinine Ratio 24.36, Glucose 95.9, Calcium 8.90, Total Bilirubin 0.47, AST 49.4, ALT 26.8, Alkaline Phosphatase 88.5, Total Protein 6.19 L, Albumin 3.38 L, Globulin 2.81, Albumin/Globulin Ratio 1.20 05/16/20 04:40: WBC 4.62, RBC 3.96 L, Hgb 12.3 L, Hct 36.8 L, MCV 92.9, MCH 31.1 H, MCHC 33.4, RDW Coeff of Natty 14.1, Plt Count 156, Immature Gran % (Auto) 0.4, Neut % (Auto) 52.7, Lymph % (Auto) 37.0, [place] % (Auto) 8.2, Eos % (Auto) 1.1, Baso % (Auto) 0.6, Neut # (Auto) 2.4, Lymph # (Auto) 1.7, [place] # (Auto) 0.4, Eos # (Auto) 0.1, Baso # (Auto) 0.0, Immature Gran # (Auto) 0.0 ASSESSMENT: Please see below. 1. Altered mental status due to advancing dementia. 2. L1 compression fracture. 3. Chronic kidney disease. PLAN: 1. Discharge home. 2. Ad[facility]. The sister is insist ent on taking him home. He is a high fall risk, flight risk. PROGNOSIS: Poor given advanced dementia and age. Plan and coordination of the patient's care discussed in the presence of Oracle Adf Developer and nurse. CONDITION: Stable SCRIBED BY: CHALINO MASTERS Tutor scribed while in presence of service performed by Dr. Duran/Abby Lara APRN on 05/16/20 ([id number])
[2020-05-16] MEDS: ASPIRIN CHEWABLE PO SCH (11:56)
[2020-05-16] MEDS: BETAPACE PO SCH (11:57)
[2020-05-16] MEDS: COZAAR PO SCH (11:57)
[2020-05-16] MEDS: NORCO 5-325 PO PRN (11:58)
[2020-05-16] MEDS: ZOCOR PO SCH (11:58)
--- NOTE | 2020-05-16 14:16 | CM.DICTOOL ---
ADMISSION: 05/14/20 00:50 DISCHARGE: MAY 16, 2020 DATE OF SERVICE: 05/16/20 FINAL DIAGNOSIS ALTERED MENTAL STATUS ADVANCING DEMENTIA L1 COMPRESSION FRACTURE CHRONIC KIDNEY DISEASE, STAGE 2 HYPERTENSION DYSLIPIDEMIA B12 DEFICIENCY WEIGHT LOSS LUMBAR FUSION L4-L5 LAST VITALS Temp Pulse Resp BP Pulse Ox 97.8 F 52 L 16 136/72 94 L 05/16/20 06:00 05/16/20 06:00 05/16/20 06:00 05/16/20 06:00 05/16/20 06:00 TAKE THESE MEDICATIONS AT HOME Hydrocodone Bitart/Acetaminophen (Hydrocodone Bit/Acetaminophen 5/325 Mg Tablet) 1 tab PO DAILY PRN PRN Reason: Pain Last Admin: 05/16/20 11:58 Dose: 1 tab Documented by: Aspirin (Aspirin 81 Mg Tab.Chew) 81 mg PO DAILYWM [facility] Last Admin: 05/16/20 11:57 Dose: 81 mg Documented by: Losartan Potassium (Losartan Potassium 100 Mg Tablet) 100 mg PO DAILY [facility] Last Admin: 05/16/20 11:57 Dose: 100 mg Documented by: Simvastatin (Simvastatin 40 Mg Tablet) 20 mg PO DAILY [facility] Last Admin: 05/16/20 11:57 Dose: 20 mg Documented by: Sotalol HCl (Sotalol Hcl 80 Mg Tablet) 60 mg PO BID [facility] Last Admin: 05/16/20 11:58 Dose: 60 mg Documented by: ALLERGIES morphine Adverse Reaction (Verified 05/05/17 09:32) pregabalin [From Lyrica] Adverse Reaction (Verified 05/05/17 09:32) DISCONTINUED MEDICATIONS Hydrocodone Bitart/Acetaminophen (Hydrocodone Bit/Acetaminophen 10/325 Mg Tablet) 1 tab PO Q8HR [facility] Last Admin: 05/14/20 12:09 Dose: 1 tab Documented by: NEW PRESCRIPTIONS: NORCO 5-325 MG DAILY PRN PAIN (#15) SMOKING: NOT APPLICABLE DISEASE SPECIFIC EDUCATION: NOT APPLICABLE DUE TO PATIENT CONFUSION FAMILY INSTRUCTED ON MEDICATIONS/APPOINTMENT LAB REVIEW: 05/16/20 04:40 05/16/20 04:40 05/16/20 04:40: Sodium 137.9, Potassium 3.94, Chloride 103.6, Carbon Dioxide 29.5, Anion Gap 8.74, BUN 29.0 H, Creatinine 1.19 H, Estimated GFR (MDRD) 58.00, BUN/Creatinine Ratio 24.36, Glucose 95.9, Calcium 8.90, Total Bilirubin 0.47, AST 49.4, ALT 26.8, Alkaline Phosphatase 88.5, Total Protein 6.19 L, Albumin 3.38 L, Globulin 2.81, Albumin/Globulin Ratio 1.20 05/16/20 04:40: WBC 4.62, RBC 3.96 L, Hgb 12.3 L, Hct 36.8 L, MCV 92.9, MCH 31.1 H, MCHC 33.4, RDW Coeff of Natty 14.1, Plt Count 156, Immature Gran % (Auto) 0.4, Neut % (Auto) 52.7, Lymph % (Auto) 37.0, [place] % (Auto) 8.2, Eos % (Auto) 1.1, Baso % (Auto) 0.6, Neut # (Auto) 2.4, Lymph # (Auto) 1.7, [place] # (Auto) 0.4, Eos # (Auto) 0.1, Baso # (Auto) 0.0, Immature Gran # (Auto) 0.0 PLAN: DISCHARGE: HOME, BUT WILL BE STAYING WITH HIS SISTERARIANNA DIET: REGULAR ACTIVITY: TOLERATED PATIENT IS AMBULATORY PER SELF, IS UNSTEADY AT TIMES PATIENT IS AT RISK OF WANDERING AND SISTER HAS BEEN MADE AWARE OF THIS SEVERAL TIMES [facility] PLACEMENT WAS OFFERED, BUT DECLINED BY THE SISTER, ARIANNA BAEZA AN APPOINTMENT IS SCHEDULED WITH DR. DURAN/KANE AGUILAR APRN/ARACELI ALONSO APRN ON AT 11:45 CODE STATUS: DO NOT RESUSCITATE MR. MEDINA IS ALERT TO PERSON ONLY. HE IS ANXIOUS AND IMPULSIVE. HE IS COOPERATIVE AT TIMES, BUT HAS DIFFICULTY FOLLOWING DIRECTIONS. MR. MEDINA TRANSFERS SELF FROM BED TO STANDING POSITION WITHOUT ASSISTANCE. HE IS UNSTEADY AT TIMES AND REQUIRES CGA FOR AMBULATION. HE DOES NOT USE ASSISTIVE DEVICES WHEN AMBULATING. MR. MEDINA FEEDS HIMSELF AND DISPLAYS A GOOD APPETITE OF 100%. HE IS CONTINENT AND INCONTINENT OF URINE. HE REQUIRES ASSISTANCE WITH BATHING AND PERSONAL CARE. SPINE IS REDDENED FROM LYING IN BED AND SITTING IN THE CHAIR. THE SKIN IS INTACT. HYDRATION STATUS HAS IMPROVED. MD KANE SHAY, HAND ROUTER OPERATOR
[2020-05-16 14:56] VITALS: BP 106/65; TEMP 98.7
[2020-05-16] MEDS: SODIUM CHLORIDE 1,000 ML IV SCH (17:46)
--- NOTE | 2020-05-17 08:12 | DS ---
DATE OF SERVICE: 05/16/2020 FINAL DIAGNOSIS: ALTERED MENTAL STATUS ADVANCING DEMENTIA L1 COMPRESSION FRACTURE CHRONIC KIDNEY DISEASE, STAGE 2 HYPERTENSION DYSLIPIDEMIA B12 DEFICIENCY WEIGHT LOSS LUMBAR FUSION L4-L5 LAST VITALS: Temp Pulse Resp BP Pulse Ox 97.8 F 52 L 16 136/72 94 L 05/16/20 06:00 05/16/20 06:00 05/16/20 06:00 05/16/20 06:00 05/16/20 06:00 DISCHARGE INSTRUCTIONS: DISCHARGE: HOME, BUT WILL BE STAYING WITH HIS SISTER, ARIANNA BAEZA. PATIENT IS AMBULATORY PER SELF, IS UNSTEADY AT TIMES PATIENT IS AT RISK OF WANDERING AND SISTER HAS BEEN MADE AWARE OF THIS SEVERAL TIMES. SHELTER PLACEMENT WAS OFFERED, BUT DECLINED BY THE SISTER, ARIANNA BAEZA. AN APPOINTMENT IS SCHEDULED WITH DR. DURAN/KANE AGUILAR APRN/ARACELI ALONSO APRN ON AT 11:45. CODE STATUS: DO NOT RESUSCITATE TAKE THESE MEDICATIONS AT HOME: Hydrocodone Bitart/Acetaminophen (Hydrocodone Bit/Acetaminophen 5/325 Mg Tablet) 1 tab PO DAILY PRN PRN Reason: Pain Last Admin: 05/16/20 11:58 Dose: 1 tab Documented by: Aspirin (Aspirin 81 Mg Tab.Chew) 81 mg PO DAILYWM [facility] Last Admin: 05/16/20 11:57 Dose: 81 mg Documented by: Losartan Potassium (Losartan Potassium 100 Mg Tablet) 100 mg PO DAILY [facility] Last Admin: 05/16/20 11:57 Dose: 100 mg Documented by: Simvastatin (Simvastatin 40 Mg Tablet) 20 mg PO DAILY [facility] Last Admin: 05/16/20 11:57 Dose: 20 mg Documented by: Sotalol HCl (Sotalol Hcl 80 Mg Tablet) 60 mg PO BID [facility] Last Admin: 05/16/20 11:58 Dose: 60 mg Documented by: ALLERGIES: morphine Adverse Reaction (Verified 05/05/17 09:32) pregabalin [From Lyrica] Adverse Reaction (Verified 05/05/17 09:32) DISCONTINUED MEDICATIONS: Hydrocodone Bitart/Acetaminophen (Hydrocodone Bit/Acetaminophen 10/325 Mg Tablet) 1 tab PO Q8HR [facility] Last Admin: 05/14/20 12:09 Dose: 1 tab Documented by: NEW PRESCRIPTIONS: NORCO 5-325 MG DAILY PRN PAIN (#15) SMOKING: NOT APPLICABLE DISEASE SPECIFIC EDUCATION: NOT APPLICABLE DUE TO PATIENT CONFUSION FAMILY INSTRUCTED ON MEDICATIONS/APPOINTMENT LAB REVIEW: 05/16/20 04:40 05/16/20 04:40 05/16/20 04:40: Sodium 137.9, Potassium 3.94, Chloride 103.6, Carbon Dioxide 29.5, Anion Gap 8.74, BUN 29.0 H, Creatinine 1.19 H, Estimated GFR (MDRD) 58.00, BUN/Creatinine Ratio 24.36, Glucose 95.9, Calcium 8.90, Total Bilirubin 0.47, AST 49.4, ALT 26.8, Alkaline Phosphatase 88.5, Total Protein 6.19 L, Albumin 3.38 L, Globulin 2.81, Albumin/Globulin Ratio 1.20 05/16/20 04:40: WBC 4.62, RBC 3.96 L, Hgb 12.3 L, Hct 36.8 L, MCV 92.9, MCH 31.1 H, MCHC 33.4, RDW Coeff of Natty 14.1, Plt Count 156, Immature Gran % (Auto) 0.4, Neut % (Auto) 52.7, Lymph % (Auto) 37.0, Terrell % (Auto) 8.2, Eos % (Auto) 1.1, Baso % (Auto) 0.6, Neut # (Auto) 2.4, Lymph # (Auto) 1.7, Terrell # (Auto) 0.4, Eos # (Auto) 0.1, Baso # (Auto) 0.0, Immature Gran # (Auto) 0.0 DIET: REGULAR ACTIVITY: TOLERATED HOSPITAL COURSE: This is a white male who was admitted through the emergency room after found by EMS wondering out and about with no shirt on. He was admitted for change in mental status. CT of the brain was done which showed no acute abnormality. Mini mental exam was done and he scored a 9 out of 30. His dementia is fairly advanced. He had been in the office in October and then missed his last appointment in January. He has been living with his sister and is living with her currently whenever he was wondering off. He has been eating well and denies any pain. We did do some x-rays of his back because he had once mentioned some back pain which did show possible compression fracture however he gets up and about on his own. He rather quick despite his age. We have tried to discuss with the sister that he would probably be safer and better in the jail due to his fall risk and his wonder risk. However he declines this and would rather take him home herself. All of his medications have remained unchanged. Again he has not complained of much pain. We will do [place] 5-325mg daily PRN for a number of 15. He will continue on the Losartan Simvastatin. COVID test was negative. His vital signs have remained stable. He has been quite agitated while he has been here with increased confusion. Hopefully this will improve after he goes home and into his regular surroundings. He will be discharged today in stable condition and instructed to followup in 1-2 weeks. He was slightly dehydration on admission. Kidney function has improved. He would not leave an IV in and he was combative ripping his IV out. We will followup with him in the office. TIME SPENT: More than 60 minutes. DAVID
--- NOTE | 2020-05-21 09:07 | PN ---
DATE OF SERVICE: 05/15/20 SUBJECTIVE: 89-year-old white male hospitalized with back pain and altered mental status. The patient's mental status is confused, doesn't remember any sentiments at all. At times he is very restless, requiring Haldol 1 mg q.6 p.r.n. REVIEW OF SYSTEMS: CONSTITUTIONAL: No night sweats. No fatigue, malaise, lethargy. No fever or chills. HEENT: Eyes: No visual changes. No eye pain. No eye discharge. ENT: No runny nose. No epistaxis. No sinus pain. No sore throat. No odynophagia. No congestion. RESPIRATORY: No cough, no congestion. No hemoptysis. No shortness of breath. CARDIOVASCULAR: No angina symptoms. No CHF symptoms. No atypical chest pain for CAD. No palpitations. No PND. No orthopnea. GASTROINTESTINAL: No abdominal pain. No nausea or vomiting. No diarrhea or constipation. No hematemesis. No hematochezia. GENITOURINARY: No urgency. No frequency. No dysuria. No hematuria. No obstructive symptoms. No discharge. No pain. No significant abnormal bleeding. MUSCULOSKELETAL: No musculoskeletal pain; no joint swelling. NEUROLOGICAL: No headache. No neck pain. No syncope. No seizures. No dizziness. PSYCHIATRIC: Not anxious. No depression. No suicidal thoughts. No homicidal thoughts. SKIN: No rash. No lesions. No wounds. ENDOCRINE: No unexplained weight loss. No weight gain. HEMATOLOGIC/LYMPHATIC: No anemia. No purpura. No petechiae. No prolonged or excessive bleeding. No palpable lymph nodes. PHYSICAL EXAMINATION: VITAL SIGNS: Temperature 97.7, pulse 45, respiratory rate 18, blood pressure 139/69, pulse ox 99%. HEENT: Head normocephalic, atraumatic. Eyes: Extraocular muscles are intact. Pupils are equal, round and reactive to light and accommodation. Ears: No lesions. Nose appeared normal. Throat: No exudate or erythema. NECK: Supple. No JVD, no carotid bruit. No lymphadenopathy or thyromegaly. LUNGS: Decreased breath sounds but clear to auscultation. Percussion note normal. Chest symmetrical. HEART: S1, S2, no S3. No murmurs. No cyanosis or clubbing. No ascites. Pulses: Dorsalis pedis and posterior tibial pulses +1 to +2 bilaterally. ABDOMEN: Soft. Nontender. Bowel sounds active. No CVA tenderness. No mass felt. EXTREMITIES: No edema. Full range of motion of all extremities, equal. NEUROLOGIC: No focal deficit. Cranial nerves II through XII are grossly intact. No headache, no double vision or headache. SKIN: Not dry. Intact. Turgor - normal. LYMPHATIC: No palpable lymph nodes/no lymphedema. MUSCULOSKELETAL: Normal joints with no swelling. Muscle tone is normal. LABS: Hemoglobin 12.9, hematocrit 38, WBC 6,600, normal differential. Creatinine 1.3, BUN 30, potassium 3.5. ASSESSMENT: 1. Dementia 2. Chronic kidney disease 3. Paroxysmal SVT 4. Hypertension 5. Dyslipidemia PLAN: 1. Continue all the medicine. 2. The patient is going to be placed in the [facility]. The patient's dementia is fairly well advanced. TIME SPENT: More than 30 minutes. Plan and coordination of the patient's care discussed in the presence of nurse. DAVID
--- NOTE | 2020-05-21 09:28 | PN ---
DATE OF SERVICE: 05/16/20 SUBJECTIVE: The patient is seen and examined with the nurse practitioner. The patient's condition is stable. The patient is going to go to the [facility]. The patient has restlessness with dementia. His cardiovascular status is stable. TIME SPENT: More than 30 minutes. Plan and coordination of the patient's care discussed in the presence of nurse. DAVID
--- NOTE | 2020-05-21 09:33 | PN ---
BILLING 05/14/20 ADMISSION DAY LEVEL 5 05/15/20 INTERMEDIATE 05/16/20 D IN DISCHARGE MTDD
== END 2020-05-16 16:35 | disposition home or self-care (01) | DRG 948 ==
LOC: ED 22:36 → MEDSURG A 05-14 00:50
PROVIDERS: ADMIT Internal Medicine; ATTEND Internal Medicine
DX: R41.82 Altered mental status, unspecified; M48.50XD Collapsed vertebra, not elsewhere classified, site unspecified, subsequent encounter for fracture with routine healing; E86.0 Dehydration; I10 Essential (primary) hypertension; E53.8 Deficiency of other specified B group vitamins; F03.90 Unspecified dementia, unspecified severity, without behavioral disturbance, psychotic disturbance, mood disturbance, and anxiety; N18.2 Chronic kidney disease, stage 2 (mild); E78.5 Hyperlipidemia, unspecified; M54.9 Dorsalgia, unspecified